=== PATIENT | male | born 1950 | race Caucasian/White ===

== ENCOUNTER 2017-05-30 01:44 | Emergency (ER) | payer OTHER ==
[~2017-05-30] VITALS: Ht 170.2 cm; Wt 95.5 kg
[~2017-05-30 01:44] MED LIST: ASPI-435 PO; CHOL100027 PO; CIPR-255 PO; METF500T PO
[2017-05-30 02:04] VITALS: TEMP 36.8; Ht 170.2 cm; Wt 95.5 kg
[2017-05-30] MEDS ORDERED: ONDANSETRON INJ 2 MG/ML 2 ML VIAL IV STA (02:20)
[2017-05-30] MEDS ORDERED: SODIUM CHLORIDE 0.9% 1000ML 1,000 ML IV STA (02:20)
[2017-05-30 02:32] LABS: BASO % 0.2 %; BASO ABS # 0.02 K/uL (0-0.2); COMPLETE YES; EOS % 0.2 %; HEMATOCRIT 46.9 % (42-52); IG% 0.3 %; LYMPH % 16.3 %; LYMPH ABS # 1.96 K/uL (1.2-3.4); MEAN CELL VOLUME 89.2 fL (80-100); MEAN CORPUSCULAR HEMOGLOBIN 30.8 pg (25-34); MEAN CORPUSCULAR HGB CONC 34.5 g/dl (32-36); MEAN PLATELET VOLUME 9.1 fL (7.4-10.4); MONO % 5.5 %; NEUT % 77.5 %; PLATELET COUNT 149 K/uL (130-400); RED BLOOD COUNT 5.26 M/uL (4.7-6.1); WHITE BLOOD COUNT 12.06 K/uL (4.8-10.8)
[2017-05-30 02:35] LABS: URINE APPEARANCE CLOUDY (CLEAR); URINE BILIRUBIN NEG (NEG); URINE COLOR YELLOW; URINE EPITHELIAL CELL AUTO 0-5 /lpf (0-5); URINE NITRITE NEG (NEG); URINE SPECIFIC GRAVITY 1.032 (1.000-1.030); UROBILINOGEN NEG (NEG); ZZUR CULT IF INDIC CLEAN CATCH NO
[2017-05-30 02:36] LABS: MANUAL MICROSCOPIC REQUIRED? NO; REVIEW REQ? NO
[2017-05-30 02:48] LABS: BUN/CREATININE RATIO 15.1 (10-20); CALCIUM 9.7 mg/dl (8.5-10.1); CREATININE 1.3 mg/dl (0.60-1.40); POTASSIUM 4.2 mmol/L (3.5-5.1)
[2017-05-30 02:51] LABS: ALB/GLOB RATIO 0.9 (0.9-2)
[2017-05-30] MEDS ORDERED: MoRPHine SULFATE 10 MG/ML CARP/VIAL IV STA (03:23)
[2017-05-30] MEDS ORDERED: TAMS0.4C38 PO (05:29)
[2017-05-30] MEDS ORDERED: ONDA4TAB10 SL (05:29)
[2017-05-30] MEDS ORDERED: OXYC-57 PO (05:29)
--- NOTE | 2017-05-30 05:30 | EMERGENCY ROOM VISIT NOTE ---
History First contact with patient: 02:06 Chief Complaint: VOMITING Stated Complaint: UPSET STOMACH Nursing Triage Summary: Patient reports abdominal pain and vomiting all day. Patient has hx kidney stones and states these symptoms are similar. Patient was at ER with friend all day today and unable to take his medicine. History of Present Illness The patient is a 67 year old male who presents to the Emergency Room with complaints of abdominal bloating, nausea and vomiting. The patient states that his symptoms began yesterday. He reports generalized abdominal bloating and a feeling of fullness. He has had nausea and 3 episodes of vomiting. He has a history of kidney stones and feels this may be similar, but is unsure. He did not have a bowel movement today, but states they were regular prior to today. He rates his discomfort a 7/10. He denies any back pain or pain radiating to the groin. He denies any urinary symptoms. Review of Systems A complete 10 point review of systems was reviewed with the patient with pertinent positives and negatives as per history of present illness. All else were negative. Past Medical/Surgical History Medical Problems: (1) Diabetes Family History FH: abdominal aortic aneurysm Social History Smoking Status: Never Smoker Drug Use: none Marital Status: Housing Status: lives with significant other Occupation Status: employed Current/Historical Medications Scheduled Aspirin (Aspirin 81), 81 MG PO DAILY Cholecalciferol (Vitamin D 1000 Unit), 1,000 INTER.UNIT PO DAILY Metformin Hcl (Glucophage), 500 MG PO QPM Metformin Hcl (Glucophage), 1,000 MG PO QAM Ondasetron Odt (Zofran Odt), 4 MG SL Q6H Tamsulosin Hcl (Flomax), 0.4 MG PO DAILY Scheduled PRN Oxycodone/Acetaminophen 5MG/325MG (Percocet 5MG/325MG), 1-2 TABS PO Q4H PRN for Pain Allergies Coded Allergies: No Known Allergies (Unverified , 05/30/17) Physical Exam Vital Signs Date Time Temp Pulse Resp B/P (MAP) Pulse Ox O2 Delivery O2 Flow Rate FiO2 05/30/17 05:34 70 18 133/71 96 Room Air 05/30/17 04:52 67 18 164/85 96 Room Air 05/30/17 03:32 66 20 155/81 97 Room Air 05/30/17 02:04 36.8 70 21 174/86 98 Room Air Pain Rating (0-10): 0 Physical Exam VITALS: Vitals are noted on the nurse's note and reviewed by myself. Vital signs stable. GENERAL: This is a 67-year-old male, in no acute distress, nondiaphoretic, well- developed well-nourished. HEART: Regular rate and rhythm without murmurs gallops or rubs. LUNGS: Clear to auscultation bilaterally without wheezes, rales or rhonchi. ABDOMEN: Positive bowel sounds x 4. Soft, nondistended. Mild generalized tenderness. MUSCULOSKELETAL: No CVA tenderness. NEURO: Patient was alert and oriented to person place and time. Medical Decision & Procedures ER Provider Diagnostic Interpretation: KUB: No renal or ureteral calculi identified. Normal bowel gas pattern. US RENAL: Right kidney shows no substantial abnormality. There is at least mild left hydronephrosis. The visualized proximal left ureter is mildly dilated to 4 mm in caliber. 4 mm stone in the lower pole of the left kidney. 2.3 cm septated mass in the upper pole of the left kidney, nonvascular. It may represent a complex cyst. Left urinary jet not seen. CT ABDOMEN & PELVIS: 3 mm stone at the left UVJ with postobstructive change. Additional nonobstructing stone in the left kidney. Left renal hypodensity. May represent a simple cyst. Diverticulosis. Remainder of noncontrast study shows no definite evidence for an additional acute inflammatory process. Radiologist: Gordy Javed MD Laboratory Results 05/30/17 02:10 Red Blood Count 5.26, Mean Corpuscular Volume 89.2, Mean Corpuscular Hemoglobin 30.8, Mean Corpuscular Hemoglobin Concent 34.5, Mean Platelet Volume 9.1, Neutrophils (%) (Auto) 77.5, Lymphocytes (%) (Auto) 16.3, Monocytes (%) (Auto) 5.5, Eosinophils (%) (Auto) 0.2, Basophils (%) (Auto) 0.2, Neutrophils # (Auto) 9.36, Lymphocytes # (Auto) 1.96, Monocytes # (Auto) 0.66, Eosinophils # (Auto) 0.02, Basophils # (Auto) 0.02 05/30/17 02:10 Test 05/30/17 02:10 05/30/17 02:20 White Blood Count 12.06 K/uL (4.8-10.8) Red Blood Count 5.26 M/uL (4.7-6.1) Hemoglobin 16.2 g/dL (14.0-18.0) Hematocrit 46.9 % (42-52) Mean Corpuscular Volume 89.2 fL (80-100) Mean Corpuscular Hemoglobin 30.8 pg (25-34) Mean Corpuscular Hemoglobin Concent 34.5 g/dl (32-36) Platelet Count 149 K/uL (130-400) Mean Platelet Volume 9.1 fL (7.4-10.4) Neutrophils (%) (Auto) 77.5 % Lymphocytes (%) (Auto) 16.3 % Monocytes (%) (Auto) 5.5 % Eosinophils (%) (Auto) 0.2 % Basophils (%) (Auto) 0.2 % Neutrophils # (Auto) 9.36 K/uL (1.4-6.5) Lymphocytes # (Auto) 1.96 K/uL (1.2-3.4) Monocytes # (Auto) 0.66 K/uL (0.11-0.59) Eosinophils # (Auto) 0.02 K/uL (0-0.5) Basophils # (Auto) 0.02 K/uL (0-0.2) RDW Standard Deviation 41.0 fL (36.4-46.3) RDW Coefficient of Variation 12.7 % (11.5-14.5) Immature Granulocyte % (Auto) 0.3 % Immature Granulocyte # (Auto) 0.04 K/uL (0.00-0.02) Urine Color YELLOW Urine Appearance CLOUDY (CLEAR) Urine pH 5.0 (4.5-7.5) Urine Specific [place] 1.032 (1.000-1.030) Urine Protein TRACE (NEG) Urine Glucose (UA) 3+ (NEG) Urine Ketones 1+ (NEG) Urine Occult Blood 2+ (NEG) Urine Nitrite NEG (NEG) Urine Bilirubin NEG (NEG) Urine Urobilinogen NEG (NEG) Urine Leukocyte Esterase NEG (NEG) Urine WBC (Auto) 0 /hpf (0-5) Urine RBC (Auto) 5-10 /hpf (0-4) Urine Hyaline Casts (Auto) 1-5 /lpf (0-5) Urine Epithelial Cells (Auto) 0-5 /lpf (0-5) Urine Bacteria (Auto) NEG (NEG) Anion Gap 9.0 mmol/L (3-11) Est Creatinine Clear Calc Drug Dose 59.1 ml/min Estimated GFR () 64.5 Estimated GFR (Non- 55.7 BUN/Creatinine Ratio 15.1 (10-20) Calcium Level 9.7 mg/dl (8.5-10.1) Total Bilirubin 0.6 mg/dl (0.2-1) Aspartate Amino Transf (AST/SGOT) 31 U/L (15-37) Alanine Aminotransferase (ALT/SGPT) 47 U/L (12-78) Alkaline Phosphatase 70 U/L (45-117) Total Protein 8.0 gm/dl (6.4-8.2) Albumin 3.8 gm/dl (3.4-5.0) Globulin 4.2 gm/dl (2.5-4.0) Albumin/Globulin Ratio 0.9 (0.9-2) Bedside Glucose 214 mg/dl (70-99) Medications Administered Medications (Trade) Dose Ordered Sig/Genna Route Start Time Stop Time Status Last Admin Dose Admin Sodium Chloride 1,000 ml @ 999 mls/hr Q1H1M STAT IV 05/30/17 02:20 05/30/17 03:20 DC 05/30/17 02:25 999 MLS/HR Ondansetron HCl (Zofran Inj) 4 mg NOW STAT IV 05/30/17 02:20 05/30/17 02:22 DC 05/30/17 02:25 4 MG Morphine Sulfate (MoRPHine SULFATE INJ) 6 mg NOW STAT IV 05/30/17 03:23 05/30/17 03:24 DC 05/30/17 03:28 6 MG ED Course The patient was evaluated as above. Labs were drawn and IV access was obtained. Patient was medicated with 1 L normal saline solution and 4 mg Zofran IV. He initially declined analgesics. Patient did not requested something for pain. He was given 6 mg morphine IV. Renal US was performed and read by statrad as above. Patient was reevaluated and findings were discussed. CT scan of the abdomen and pelvis was ordered. Patient was reevaluated and stated that he was feeling well. He would like to go home. Discharge instructions were reviewed with the patient. The patient verbalized understanding of my assessment and treatment plan and was discharged home in good condition. Medical Decision Differential diagnosis includes renal calculus, pyelonephritis, colitis, gastritis, among others. The patient is a 67-year-old male who presents today complaining of abdominal bloating and vomiting. Labs revealed a mild leukocytosis. No concerning anemia or electrolyte abnormalities. Urinalysis was not suggestive of infection. Glucose was elevated consistent with patient history of diabetes. KUB and ultrasound were initially ordered but were inconclusive. CT scan did show a 3 mm stone at the left UVJ. The patient was feeling much better after IV morphine and Zofran and would like to be discharged home. He will be given pain medication, Zofran and Flomax and given a urine strainer. He was instructed to follow-up with his primary care provider as needed or return here for worsening symptoms. Based on the patient's presentation and work up, I feel the patient is stable for outpatient treatment. The patient was educated to return to the emergency department for any worsening of their current condition or new/concerning symptoms. He will follow up with his PCP. Medication reconciliation: I attest that I have personally reviewed the patient 's current medication list. Blood Pressure Screening: Patient was found to have a slightly elevated blood pressure due to circumstances. I do not believe that the patient requires hypertension monitoring. [place] Drug Monitoring Program Search Results: patient reviewed within database, no issues identified Impression Primary Impression: Left ureteral calculus Departure Information Dispostion Home / Self-Care Condition GOOD Prescriptions Ondasetron Odt (ZOFRAN ODT) 4 Mg Tab 4 MG SL Q6H for Nausea, #15 TAB Prov: Kelly Acevedo PA-C 05/30/17 Oxycodone/Acetaminophen 5MG/325MG (PERCOCET 5MG/325MG) Tab 1-2 TABS PO Q4H Y for Pain, #20 TAB For Initial Treatment Prov: Kelly Acevedo PA-C 05/30/17 Tamsulosin Hcl (FLOMAX) 0.4 Mg Cap 0.4 MG PO DAILY for 7 Days, #7 CAP Prov: Kelly Acevedo PA-C 05/30/17 Referrals Larry Esparza M.D. (PCP) Patient Instructions [facility] Additional Instructions You have been treated in the Emergency Department today for a Kidney Stone ( Nephrolithiasis). You have received pain medicine in the emergency department which impairs your ability to operate a vehicle. It is illegal for you to drive after receiving these medicines. You have been prescribed Percocet to be used for pain control. This is a narcotic medication. You cannot drive or consume alcohol while on this medicine. This medicine should only be used for pain that cannot be controlled with [id number] pain medicines. You have been prescribed and Zofran to be used for any nausea or vomiting. Take as prescribed. You have been prescribed Flomax 0.4 mg to be taken ONCE daily. This medicine has been prescribed as it can help relax the smooth muscles of the urinary tract increasing transit time of the kidney stone. For pain control, you can use the following [id number] medicines (if >12 yo): - Regular strength (325mg/tab) Tylenol (acetaminophen) 2 tabs every 4-6 hours as needed. Do not exceed 12 tablets in a 24 hour period. Avoid taking more than 4 grams (4000 mg) of Tylenol per day. This includes any other sources of acetaminophen you may take on a regular basis. - Regular strength (200 mg/tab) Advil (ibuprofen) 1-2 tabs every 4-6 hours as needed. Do not exceed a dose of 3200 mg per day. You have been provided a strainer and specimen collection cup. You should strain your urine to collect any passed stones. Your stones can be placed into the specimen cup and taken to your Urologist for further evaluation. You have been provided the contact information for the on-call Urologist. You should contact the Urologist's office tomorrow to establish a follow-up appointment from today's Emergency Department visit. Return to the Emergency Department if your symptoms persist despite the treatment plan outlined above or if you develop the following symptoms: intractable pain, fever, chills, or large amounts of blood in your urine.
[2017-05-30 05:34] VITALS: BP 133/71; PULSE 70; O2SAT 96
--- NOTE | 2017-05-30 07:08 | DIAGNOSTIC IMAGING REPORT ---
ABD/PELVIS WITHOUT FOR STONE HISTORY: 67-year-old male presents with diffuse abdominal pain and vomiting. COMPARISON: K be radiograph of same day, CTA abdomen and pelvis 10/02/2015 TECHNIQUE: Multiple axial CT images of the abdomen and pelvis were obtained without contrast. FINDINGS: There is minimal bibasilar atelectasis. No gross pneumoperitoneum. Inferior cardiac chambers are within normal limits. There is diffuse fatty infiltration of the liver. The gallbladder, spleen, pancreas and adrenal glands are within normal limits. Cyst within the superior pole left kidney appears unchanged from comparison measuring 2.0 x 2.0 cm. 3 mm calculus within the left ureterovesicular junction is present causing mild associated hydroureteronephrosis with moderate degree of left-sided perinephric edema. There is an additional nonobstructing 3 mm calculus within the inferior pole left kidney as well as a nonobstructing 2 mm calculus. No definite right-sided renal calculi are identified. The prostate is mildly prominent in size. Urinary bladder is unremarkable. No bowel obstruction. Noninflamed colonic diverticula are present. The appendix appears normal. No adenopathy is identified. The soft tissues are unremarkable. 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 Multilevel severe facet arthrosis and DISH changes are also present. IMPRESSION: 1. 3 mm calculus of the left ureterovesicular junction causes mild associated hydroureteronephrosis. Additional nonobstructing left-sided renal calculi are present. 2. Colonic diverticulosis. 3. Hepatosteatosis. Electronically signed by: Kirill Brown 05/30/2017 7:07 AM Dictated Date/Time: 05/30/2017 7:01 AM
--- NOTE | 2017-05-30 07:27 | DIAGNOSTIC IMAGING REPORT ---
ULTRASOUND KIDNEYS AND BLADDER CLINICAL HISTORY: Bloating and nausea. COMPARISON STUDY: Abdominal CT dated 10/02/2015. TECHNIQUE: Real-time, grayscale, and color flow sonography of the kidneys and bladder is performed. Images are reviewed in the transverse and longitudinal planes. FINDINGS: Kidneys: The kidneys are normal in size and echotexture. The right kidney measures 11.3 x 5.0 x 5.8 cm and the left kidney measures 12.5 x 5.7 x 5.8 cm. There is mild left hydroureteronephrosis. No right-sided hydronephrosis is seen. A small nonobstructing calculus is suggested in the left lower pole. A 2.3 cm cyst is identified in the upper pole of left kidney. There is no sonographic evidence of contour deforming renal mass lesion. No perinephric fluid is identified. Bladder: The bladder is decompressed and grossly unremarkable. Only a right ureteral jet was seen. Upper abdomen: Survey images of the upper abdomen show hepatomegaly and hepatic steatosis. IMPRESSION: 1. There is mild left-sided hydroureteronephrosis. A left renal jet was not identified, and these findings are highly concerning for an obstructing left ureteral calculus. The stone itself was not visualized. 2. There is no right-sided hydronephrosis. 3. An additional nonobstructing calculus is suggested in the left kidney. 4. The bladder was decompressed and grossly unremarkable. Electronically signed by: Arnold Barroso M.D. 05/30/2017 7:26 AM Dictated Date/Time: 05/30/2017 7:23 AM
--- NOTE | 2017-05-30 07:33 | DIAGNOSTIC IMAGING REPORT ---
KUB HISTORY: 67-year-old male presents with bloating and nausea. History of kidney stones. COMPARISON: CT abdomen and pelvis of same day. TECHNIQUE: Single KUB radiograph FINDINGS: 3 mm calculus is seen within the expected region of the left ureterovesicular junction. No additional urolithiasis definitively seen. Bowel gas pattern is nonobstructive. Multilevel degenerative changes are seen throughout the spine. Severe left and moderate to severe right femoral acetabular joint osteoarthritis is present. IMPRESSION: 1. 3 mm calculus seen within the expected region of the left ureterovesicular junction, better evaluated on CT study of same day. 2. 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 Electronically signed by: Kirill Brown 05/30/2017 7:31 AM Dictated Date/Time: 05/30/2017 7:28 AM
== END 2017-05-30 05:33 | disposition home or self-care (01) ==
LOC: C.EDB 01:44 → C.EDA 05:33
DX: N20.1 Calculus of ureter (principal); R11.10 Vomiting, unspecified; R14.0 Abdominal distension (gaseous); D72.829 Elevated white blood cell count, unspecified; E11.9 Type 2 diabetes mellitus without complications; Z79.82 Long term (current) use of aspirin; Z79.84 Long term (current) use of oral hypoglycemic drugs; Z79.899 Other long term (current) drug therapy

== ENCOUNTER → 2017-09-03 | Day surgery (SDC) | payer OTHER ==
[2017-08-27 08:07] VITALS: Ht 170.2 cm; Wt 97.7 kg
[~2017-09-03] VITALS: Ht 170.2 cm; Wt 97.7 kg
[~2017-09-03] MED LIST changes: +500ML BSS 0.3ML EPI 1:1000PF IRRIG ONE; +ACETAMINOPHEN 325 MG TAB PO PRN; +AMVISC PLUS 0.8ML SYRINGE INT OCU ONE; +ATROPINE SULFATE 0.1 MG/ML 5ML SYR IV PRN; +BSS FLUSH ONE; -CIPR-255 PO; +EpHEDrine SULFATE INJ 50 MG/ML AMP IV PRN; +EpINEphrine INJ 1MG/ML AMP 1 MG/ML AMP ONE; +LACTATED RINGER'S 1000ML 500 ML IV SCH; +LIDOCAINE 3.5% OPH GEL PER APPLICATION CHARGE ONE; +LIDOCAINE HCL 1% MPF 2 ML VIAL ONE; +MIDAZOLAM HCL 1 MG/ML 2ML VIAL ONE; +OCUCOAT 1 ML SOLN IO ONE; +ONDANSETRON INJ 2 MG/ML 2 ML VIAL IV PRN; +POVIDONE-IODINE OP SOLN 30 ML BTL ONE; +PROPARACAINE 0.5% OP SOLN PER DROP CHARGE OPR SCH; +TOBRAMYCIN/DEXAMETHASONE OPH OINT PER APPLN CHARGE ONE
[2017-09-03] MEDS: PHENYLEPHRINE HCL 2.5% OP SOLN PER DROP CHARGE OPR SCH ×2 (09:39→09:44)
[2017-09-03] MEDS: TROPICAMIDE 1% OP SOLN PER DROP CHARGE OPR SCH ×2 (09:40→09:45)
[2017-09-03] MEDS: CYCLOPENTOLATE HCL 1% OP SOLN PER DROP CHARGE OPR SCH ×2 (09:41→09:46)
[2017-09-03] MEDS: KETOROLAC 0.5% OP SOLN PER DROP CHARGE OPR SCH ×2 (09:42→09:47)
[2017-09-03] MEDS: GATIFLOXACIN OP SOLN PER DROP CHARGE OPR SCH ×2 (09:43→09:53)
--- NOTE | 2017-09-03 10:12 | History & Physical Bridge - SC ---
H&P Re-Evaluation Bridge Note: I have examined the patient, reviewed the History & Physical and in the interval since the performance of the History & Physical I have noted the following changes of clinical significance: No changes noted
--- NOTE | 2017-09-03 10:41 | Discharge Instructions-SurgCtr ---
Discharge Instructions Date of Service Sep 03, 2017. Visit Reason for Visit: Cataract Right Eye Discharge Discharge Diagnosis / Problem: cataract Discharge Goals Goal(s): Improve function Medications Stopped Medications Name(s): stopped metformin Saturday Activity Recommendations Activity Limitations: per Instructions/Follow-up section Anesthesia . Post Anesthesia Instructions: If you have had General Anesthesia or IV Sedation: * Do not drive today. * Resume driving when surgeon permits. * Do not make important decisions or sign legal documents today. * Call surgeon for: 1. Temperature elevations greater than 101 degrees F. 2. Uncontrollable pain. 3. Excessive bleeding. 4. Persistent nausea and vomiting. 5. Medication intolerance (nausea, vomiting or rash). * For nausea and vomiting use only clear liquids such as: tea, soda, bouillon until nausea subsides, then gradually increase diet as tolerated. * If you have any concerns or questions, call your surgeon's office. If physician is unavailable and it is an emergency, call 911 or go to the nearest emergency room. . Diet Recommendations Home Diet: resume previous diet Procedures Procedures Performed: Right Cataract Phacoemulsification With Intraocular Lens Implant Pending Studies Studies pending at discharge: no Medical Emergencies . Who to Call and When: Medical Emergencies: If at any time you feel your situation is an emergency, please call 911 immediately. . Non-Emergent Contact Non-Emergency issues call your: Library Services Coordinator . . "Provider Documentation" section prepared by Arvind Rehman. .
--- NOTE | 2017-09-03 10:41 | [facility] Operative Report ---
Operative Report Date of Service Sep 03, 2017. Operative Report 1. PREOPERATIVE DIAGNOSIS: Cataract of the right eye. 2. POSTOPERATIVE DIAGNOSIS: Same. 3. PROCEDURE: Phacoemulsification with intraocular lens implantation of the right eye. SURGEON: Dr. Arvind Rehman. ANESTHESIA: Topical Lidocaine gel, 1% Non- Preserved intracameral Lidocaine, and monitored intravenous sedation. INDICATIONS FOR THE PROCEDURE: The patient is a 67 - year-old male with a history of cataract of the right eye causing significant visual impairment. The details of the proposed procedure were explained to the patient who asked appropriate questions and following discussion of all risks, benefits and alternatives agreed to have the procedure done. 4. OPERATION AND FINDINGS: DESCRIPTION OF PROCEDURE: After informed consent was obtained, the patient was brought to the Operating Room at the [facility]. The patient was placed in a supine position and then the right eye was prepped and draped in the usual sterile fashion for intraocular surgery. A drop of topical Lidocaine gel was placed in the operative eye. A wire lid speculum was then placed in the fornices. A corneal paracentesis was then created temporally. The Non-Preserved Lidocaine was then instilled into the anterior chamber. The anterior chamber was then pressurized with viscoelastic. A 2.0 mm clear corneal incision was then created temporally. A cystotome was inserted into the anterior chamber and used to create a tear in the anterior lens capsule. This capsular tear was then used to create a small flap and the flap was dragged in a counterclockwise direction in order to create a continuous curvilinear capsulorrhexis. Hydrodissection was accomplished with balanced salt solution. Phacoemulsification of the lens nucleus was then performed in a standard [id number] technique. The phaco time was 21 seconds with an average power of 9 %. The remaining cortical material was removed using irrigation aspiration. The capsular bag was then filled with viscoelastic. A [employer]ch [employer] Lomb MI60L +20.5 diopters lens was then loaded into the injector and injected into the capsular bag. The remaining viscoelastic was removed with the irrigation aspiration handpiece. The wound was hydrated and then checked and found to be watertight. The intraocular pressure was checked and found to be adequate. The wire lid speculum was removed and the patient's face was cleaned and dried. TobraDex ointment was placed in the inferior fornix. The patient was discharged to the Recovery Room having tolerated the procedure well. There were no complications. The patient will be seen tomorrow in the office for follow-up. I attest to the content of the Intraoperative Record and any orders documented therein. Any exceptions are noted below.
[2017-09-03 10:58] VITALS: TEMP 36.5
--- NOTE | 2017-09-03 11:06 | Anesthesia Progress Nt - [facility] ---
Anesthesia Post Op Note Date & Time Sep 03, 2017 at 11:06 Vital Signs Pain Intensity: 0 Vital Signs Past 12 Hours Date Time Temp Pulse Resp B/P (MAP) Pulse Ox O2 Delivery O2 Flow Rate FiO2 09/03/17 10:58 36.5 69 20 120/80 (93) 95 Room Air 09/03/17 09:31 36.7 72 16 143/85 (104) 96 Room Air Notes Mental Status: alert / awake / arousable, participated in evaluation Pt Amnestic to Procedure: Yes Nausea / Vomiting: adequately controlled Pain: adequately controlled Airway Patency, RR, SpO2: stable & adequate BP & HR: stable & adequate Hydration State: stable & adequate Anesthetic Complications: no major complications apparent Doing well. VSS. Ready for d/c
[2017-09-03 11:09] VITALS: BP 118/79; PULSE 62; O2SAT 97
== END | disposition home or self-care (01) ==
LOC: X.SURG 09:10
PROVIDERS: ATTEND Ophthalmology
DX: H26.9 Unspecified cataract (principal); E11.9 Type 2 diabetes mellitus without complications; J34.2 Deviated nasal septum; E78.5 Hyperlipidemia, unspecified; E66.9 Obesity, unspecified; Z79.82 Long term (current) use of aspirin; Z86.010 Personal history of colon polyps; Z80.3 Family history of malignant neoplasm of breast

== ENCOUNTER → 2017-09-24 | Day surgery (SDC) | payer OTHER ==
[2017-09-11 10:02] VITALS: Ht 170.2 cm; Wt 97.7 kg
[~2017-09-24] VITALS: Ht 170.2 cm; Wt 97.7 kg
[~2017-09-24] MED LIST changes: +FENTANYL CITRATE INJ 50 MCG/1 ML 2 ML VIAL IV PRN; +PROPARACAINE 0.5% OP SOLN PER DROP CHARGE OPL SCH; -PROPARACAINE 0.5% OP SOLN PER DROP CHARGE OPR SCH
[2017-09-24] MEDS: PHENYLEPHRINE HCL 2.5% OP SOLN PER DROP CHARGE OPL SCH ×2 (06:33→06:38)
[2017-09-24] MEDS: TROPICAMIDE 1% OP SOLN PER DROP CHARGE OPL SCH ×2 (06:34→06:39)
[2017-09-24] MEDS: CYCLOPENTOLATE HCL 1% OP SOLN PER DROP CHARGE OPL SCH ×2 (06:35→06:40)
[2017-09-24] MEDS: KETOROLAC 0.5% OP SOLN PER DROP CHARGE OPL SCH ×2 (06:36→06:41)
[2017-09-24] MEDS: GATIFLOXACIN OP SOLN PER DROP CHARGE OPL SCH ×2 (06:37→06:47)
--- NOTE | 2017-09-24 06:57 | History & Physical Bridge - [place] ---
H&P Re-Evaluation Bridge Note: I have examined the patient, reviewed the History & Physical and in the interval since the performance of the History & Physical I have noted the following changes of clinical significance: Diagnosis: Left Cataract Procedure: Left Cataract Removal with Lens Implant No changes noted
--- NOTE | 2017-09-24 07:42 | Discharge Instructions-SurgCtr ---
Discharge Instructions Date of Service Sep 24, 2017. Visit Reason for Visit: Cataract Left Eye Discharge Discharge Diagnosis / Problem: cataract Discharge Goals Goal(s): Improve function Medications Stopped Medications Name(s): Metformin stopped Saturday Activity Recommendations Activity Limitations: per Instructions/Follow-up section Anesthesia . Post Anesthesia Instructions: If you have had General Anesthesia or IV Sedation: * Do not drive today. * Resume driving when surgeon permits. * Do not make important decisions or sign legal documents today. * Call surgeon for: 1. Temperature elevations greater than 101 degrees F. 2. Uncontrollable pain. 3. Excessive bleeding. 4. Persistent nausea and vomiting. 5. Medication intolerance (nausea, vomiting or rash). * For nausea and vomiting use only clear liquids such as: tea, soda, bouillon until nausea subsides, then gradually increase diet as tolerated. * If you have any concerns or questions, call your surgeon's office. If physician is unavailable and it is an emergency, call 911 or go to the nearest emergency room. . Diet Recommendations Home Diet: resume previous diet Procedures Procedures Performed: Left Cataract Phacoemulsification with Intraocular Lens Implant Pending Studies Studies pending at discharge: no Medical Emergencies . Who to Call and When: Medical Emergencies: If at any time you feel your situation is an emergency, please call 911 immediately. . Non-Emergent Contact Non-Emergency issues call your: Theater Set Production Designer . . "Provider Documentation" section prepared by Arvind Rehman. .
--- NOTE | 2017-09-24 07:43 | [facility] Operative Report ---
Operative Report Date of Service Sep 24, 2017. Operative Report 1. PREOPERATIVE DIAGNOSIS: Cataract of the left eye. 2. POSTOPERATIVE DIAGNOSIS: Same. 3. PROCEDURE: Phacoemulsification with intraocular lens implantation of the left eye. SURGEON: Dr. Arvind Rehman. ANESTHESIA: Topical Lidocaine gel, 1% Non- Preserved intracameral Lidocaine, and monitored intravenous sedation. INDICATIONS FOR THE PROCEDURE: The patient is a 67 - year-old male with a history of cataract of the left eye causing significant visual impairment. The details of the proposed procedure were explained to the patient who asked appropriate questions and following discussion of all risks, benefits and alternatives agreed to have the procedure done. 4. OPERATION AND FINDINGS: DESCRIPTION OF PROCEDURE: After informed consent was obtained, the patient was brought to the Operating Room at the [facility]. The patient was placed in a supine position and then the left eye was prepped and draped in the usual sterile fashion for intraocular surgery. A drop of topical Lidocaine gel was placed in the operative eye. A wire lid speculum was then placed in the fornices. A corneal paracentesis was then created temporally. The Non-Preserved Lidocaine was then instilled into the anterior chamber. The anterior chamber was then pressurized with viscoelastic. A 2.0 mm clear corneal incision was then created temporally. A cystotome was inserted into the anterior chamber and used to create a tear in the anterior lens capsule. This capsular tear was then used to create a small flap and the flap was dragged in a counterclockwise direction in order to create a continuous curvilinear capsulorrhexis. Hydrodissection was accomplished with balanced salt solution. Phacoemulsification of the lens nucleus was then performed in a standard [id number] technique. The phaco time was 24 seconds with an average power of 10 %. The remaining cortical material was removed using irrigation aspiration. The capsular bag was then filled with viscoelastic. A Bausch [employer] Lomb MI60L +20.0 diopters lens was then loaded into the injector and injected into the capsular bag. The remaining viscoelastic was removed with the irrigation aspiration handpiece. The wound was hydrated and then checked and found to be watertight. The intraocular pressure was checked and found to be adequate. The wire lid speculum was removed and the patient's face was cleaned and dried. TobraDex ointment was placed in the inferior fornix. The patient was discharged to the Recovery Room having tolerated the procedure well. There were no complications. The patient will be seen tomorrow in the office for follow-up. I attest to the content of the Intraoperative Record and any orders documented therein. Any exceptions are noted below.
[2017-09-24 07:45] VITALS: TEMP 36.2
--- NOTE | 2017-09-24 08:08 | Anesthesia Progress Nt - [facility] ---
Anesthesia Post Op Note Date & Time Sep 24, 2017 at 08:08 Vital Signs Pain Intensity: 0 Vital Signs Past 12 Hours Date Time Temp Pulse Resp B/P (MAP) Pulse Ox O2 Delivery O2 Flow Rate FiO2 09/24/17 07:45 36.2 66 16 115/74 (88) 95 Room Air 09/24/17 06:26 36.6 70 18 156/81 (106) 95 Room Air Notes Mental Status: alert / awake / arousable, participated in evaluation Pt Amnestic to Procedure: Yes Nausea / Vomiting: adequately controlled Pain: adequately controlled Airway Patency, RR, SpO2: stable & adequate BP & HR: stable & adequate Hydration State: stable & adequate Anesthetic Complications: no major complications apparent
[2017-09-24 08:13] VITALS: BP 110/73; PULSE 63; O2SAT 95
== END | disposition home or self-care (01) ==
LOC: X.SURG 06:11
PROVIDERS: ATTEND Ophthalmology
DX: H26.9 Unspecified cataract (principal); E11.9 Type 2 diabetes mellitus without complications; E78.5 Hyperlipidemia, unspecified; E66.9 Obesity, unspecified; Z68.30 Body mass index [BMI] 30.0-30.9, adult; Z79.899 Other long term (current) drug therapy

== ENCOUNTER 2019-02-27 06:58 | Inpatient (IN) ==
--- NOTE | 2019-01-26 10:31 | PAT Medication Instructions ---
Medication Instructions Date of Service January 26, 2019 Home Medications aspirin [Aspir-Low] 81 mg PO QAM metformin 500 mg PO BID DO NOT take the morning of surgery metformin 500 mg PO BID Take morning of surgery With a small sip of water, OTHERWISE NOTHING TO EAT OR DRINK AFTER MIDNIGHT: aspirin [Aspir-Low] 81 mg PO QAM Take evening before surgery metformin 500 mg PO BID Other Notes If you have any questions please call us at [phone] or [phone] or [phone] or [phone]
--- NOTE | 2019-01-26 11:16 | Anesthesiology Consultation ---
Date of Service January 26, 2019 Assessment & Plan (1) Encounter for pre-operative examination: Chart Review Chart Review: Acceptable Risk for Surgery and Patient seen in Pre Admission Testing Consults Requested none Note sent to PCP re: HgBA1C and BSG. Patient is ok to proceed with surgery, but will wait to see if PCP makes any changes to patients diabetes management before clearing chart. Note received from PCP regarding patients blood sugars. Note received stating, "Unfortunately his sugars have not been well controlled. He has been using Metformin ER 500 mg 2 tabs daily. I recently (1 week ago) started him on Jardiance 25mg daily. His blood sugars are much improved (recent sugars ranging between 123-184 various times of day). I feel the diabetes is well enough controlled to proceed with surgery. He will need short acting Insulin coverage in post operative period." Teaching & Discussion Pre-Anesthesia Teaching/Discussion Notes: Instructed NPO after midnight before surgery, except medications with 15 cc of water. Medication instructions provided according to the PAT guidelines. History Surgery Operation Date: 02/27/19 12:30 Proposed Procedures p Right Anterior Total Hip Arthroplasty - Efren Gregorio DO Height/Weight Height: 5 ft 7 in Weight: 94.2 kg Allergies Allergy/AdvReac Type Severity Reaction Status Date / Time No Known Allergies Allergy Verified 01/22/19 10:06 Medications Home Medications Medication Instructions Recorded Confirmed Last Taken aspirin [Aspir-Low] 81 mg PO QAM 01/22/19 01/22/19 Unknown metformin 500 mg PO BID 01/22/19 01/22/19 Unknown Past Medical History Medical History Degenerative disc disease Diabetes mellitus, type 2 Hyperactive pharyngeal gag reflex PER PT Hyperlipidemia BORDERLINE ELEVATED Kidney stones NO SURGERY REQUIRED Osteoarthritis Peripheral neuropathy Past Family History Family History Mother Family history of diabetes mellitus Past Surgical History Surgical History History of cataract surgery RT/LEFT History of colonoscopy History of herniorrhaphy RIGHT INGUINAL History of tonsillectomy History of tooth extraction Past Anesthesia History No Hx of Anesthesia Complications and No Family Hx of Anesthesia Complications History of PONV No Motion Sickness Screening History of Motion Sickness: No Social History Smoking Status: Never smoker Do You Dip or Chew Tobacco: No Hx Alcohol Use: No Hx Substance Use: No substance use type: does not use Exercise / Class Metabolic Activity Climbs 2 FOS 6-8 times per day. Denies CP or SOB. Review of Systems Patient denies chest pain, shortness of breath, dyspnea on exertion, reflux, cough, wheezing, palpitations. +Joint pain (back, neck, hip, generalized) Physical Exam Vital Signs BP: 130/81 P: 69 R: 14 T: 97.4 SPO2: 96% on RA ENMT Mouth: + dental restorations Thyromental Distance: < 3.5 Finger Breadths (2.5) Mallampati Class: I Neck normal visual inspection, trachea midline and + limited neck extension Respiratory normal respiratory effort Auscultation: lungs clear to auscultation bilaterally Cardiovascular Rate/Rhythm: regular rate and regular rhythm Heart Sounds: no murmur Vessels: no carotid bruit Neurologic moves all extremities Psychiatric Orientation: alert and oriented x 3 Testing Electrocardiogram Date: 01/26/19 Findings: + NSR @ (65) Chest X-Ray Date: 01/26/19 Findings: + NAD FINDINGS: Cardiomediastinal and hilar silhouettes are within normal limits. No pneumothorax, pleural effusion, focal airspace consolidation or overt pulmonary edema. Degenerative changes of the shoulders and spine. IMPRESSION: No acute process. Laboratory Results 01/26/19 11:51 01/26/19 11:51 Blood Type O Positive 01/26/19 11:51 Antibody Screen NEGATIVE 01/26/19 11:51 PT 10.2 Seconds (9.0-12.0) 01/26/19 11:51 INR 1.0 (0.9-1.1) 01/26/19 11:51 APTT 24.9 Seconds (21.0-31.0) 01/26/19 11:51 Hemoglobin A1c 8.5 % (4.5-5.6) H 01/26/19 11:51 PCP and Surgeon made aware of elevated A1C and BSG.
--- NOTE | 2019-01-26 13:05 | XRay Report ---
XR chest Pre-admission PA/Lat HISTORY: 68 years-old Male pat preoperative exam. No acute chest complaints COMPARISON: CT abdomen and pelvis 05/30/2017 TECHNIQUE: PA and lateral views of the chest FINDINGS: Cardiomediastinal and hilar silhouettes are within normal limits. No pneumothorax, pleural effusion, focal airspace consolidation or overt pulmonary edema. Degenerative changes of the shoulders and spin e. IMPRESSION: No acute process. The above report was generated using voice recognition software. It may contain grammatical, syntax o r spelling errors. Electronically signed by: Kirill Brown M.D. 01/26/2019 1:04 PM
[2019-01-26 13:19] LABS: Basophils # (auto) 0.01 K/uL (0-0.2); Basophils % (auto) 0.1 %; Eosinophils # (auto) 0.18 K/uL (0-0.5); Eosinophils % (auto) 2.5 %; Hematocrit (blood only) 46.3 % (42-52); Hemoglobin 15.8 g/dL (14.0-18.0); Immature Granulocytes # (auto) 0.01 K/uL (0.00-0.02); Immature Granulocytes % (auto) 0.1 %; Lymphocytes # (auto) 2.62 K/uL (1.2-3.4); Lymphocytes % (auto) 36.6 %; Mean Corpuscular Hgb Conc 34.1 g/dL (32-36); Mean Corpuscular Volume 90.3 fL (80-100); Mean Platelet Volume 9.8 fL (7.4-10.4); Monocytes # (auto) 0.65 K/uL (0.11-0.59); Monocytes % (auto) 9.1 %; Neutrophils # (auto) 3.69 K/uL (1.4-6.5); Neutrophils % (auto) 51.6 %; Platelet Count 169 K/uL (130-400); RDW Coefficient of Variation 12.7 % (11.5-14.5); RDW Standard Deviation 41.9 fL (36.4-46.3); Red Blood Count 5.13 M/uL (4.7-6.1); White Blood Count 7.16 K/uL (4.8-10.8)
[2019-01-26 13:27] LABS: BUN Creatinine Ratio 15.9 (10-20); Calcium 9.6 mg/dl (8.5-10.1); Creatinine Clr Calc Pharmacy 82.6 ml/min; Est GFR (African American) 98.6; Est GFR (Non-African American) 85.1; Potassium 4.3 mmol/L (3.5-5.1)
[2019-01-26 13:38] LABS: Estimated Average Glucose 197 mg/dl; Hemoglobin A1C 8.5 % (4.5-5.6)
[2019-01-26 13:43] LABS: Partial Thromboplastin Ratio 0.9; Partial Thromboplastin Time 24.9 Seconds (21.0-31.0); Prothrombin Time 10.2 Seconds (9.0-12.0)
--- NOTE | 2019-02-25 07:42 | History & Physical Report ---
Date of Service February 25, 2019 Assessment & Plan (1) Osteoarthritis of right hip: We will proceed with a right anterior total hip arthroplasty. Postoperatively he will be kept on aspirin for DVT prophylaxis. He is planning to go to [facility] rehab after discharge for a couple of days and then use [facility] when he goes home. Present on Admission?: Yes History of Present Illness Chief Complaint: Primary osteoarthritis of the right hip Primary Care Provider: Larry Hinojosa is a pleasant 68-year-old male who is been dealing with chronic increasing right hip and groin pain. X-rays and clinical examination have been diagnostic for primary osteoarthritis of the right hip. After failing conservative treatment, he has elected to proceed with a right total hip arthroplasty. Allergies Allergy/AdvReac Type Severity Reaction Status Date / Time No Known Allergies Allergy Verified 01/22/19 10:06 Home Medications Home Medications Medication Instructions Recorded Confirmed Type aspirin [Aspir-Low] 81 mg PO QAM 01/22/19 01/22/19 History metformin 500 mg PO BID 01/22/19 01/22/19 History Past Med/Surg History Medical History Degenerative disc disease Diabetes mellitus, type 2 Hyperactive pharyngeal gag reflex PER PT Hyperlipidemia BORDERLINE ELEVATED Kidney stones NO SURGERY REQUIRED Osteoarthritis Peripheral neuropathy Surgical History History of cataract surgery RT/LEFT History of colonoscopy History of herniorrhaphy RIGHT INGUINAL History of tonsillectomy History of tooth extraction Family History Mother Family history of diabetes mellitus Social History Preferred Language: Lithuanian Communication Ability: Effective Travel Accommodations Rater Required: No Beliefs That Will Affect Care: None Current Living Situation: Spouse Other Information That Helps Us Care for You: No Feels Safe at Home: Yes Safety Concerns: Feels Safe At This Time Smoking Status: Never smoker Hx Alcohol Use: No Hx Substance Use: No Review of Systems All systems reviewed & are unremarkable except as noted in HPI & below Physical Exam Constitutional: WD/WN, vitals as above Eyes: PERRL, conjunctivae normal, anicteric sclerae ENMT: external ear and nose normal, oropharynx normal Neck: trachea midline, no thyromegaly Respiratory: normal respiratory effort Cardiovascular: RRR, no murmur, no edema Gastrointestinal (Abdomen): normal bowel sounds, soft, nontender, no hepatosplenomegaly Musculoskeletal: Physical examination of the right hip reveals decreased range of motion with flexion, internal and external rotation. There is significant groin pain with forced internal rotation of the hip his leg lengths are essentially equal. Psychiatric: A+Ox3, euthymic affect Results & Data Diagnostic Findings Radiographs of the right hip and pelvis demonstrate advanced osteoarthritis with joint space narrowing osteophyte formation and feto-mr-oimm articulation.
[~2019-02-27 06:58] MED LIST changes: -500ML BSS 0.3ML EPI 1:1000PF IRRIG ONE; -ACETAMINOPHEN 325 MG TAB PO PRN; +ACETAMINOPHEN 500 MG TAB PO SCH; -AMVISC PLUS 0.8ML SYRINGE INT OCU ONE; -ASPI-435 PO; -ATROPINE SULFATE 0.1 MG/ML 5ML SYR IV PRN; -BSS FLUSH ONE; +CEFAZOLIN 2000MG 2,000 MG/15 ML SYR IV SCH; -CHOL100027 PO; -EpHEDrine SULFATE INJ 50 MG/ML AMP IV PRN; -EpINEphrine INJ 1MG/ML AMP 1 MG/ML AMP ONE; +FAMOTIDINE 20 MG TAB PO SCH; -FENTANYL CITRATE INJ 50 MCG/1 ML 2 ML VIAL IV PRN; +GABAPENTIN 300 MG PO SCH; -LACTATED RINGER'S 1000ML 500 ML IV SCH; -LIDOCAINE 3.5% OPH GEL PER APPLICATION CHARGE ONE; -LIDOCAINE HCL 1% MPF 2 ML VIAL ONE; +LR 500ML BOLUS, THEN 15ML/HR IV SCH; +LR 60ML/HR IV SCH; -METF500T PO; -MIDAZOLAM HCL 1 MG/ML 2ML VIAL ONE; -OCUCOAT 1 ML SOLN IO ONE; -ONDANSETRON INJ 2 MG/ML 2 ML VIAL IV PRN; -POVIDONE-IODINE OP SOLN 30 ML BTL ONE; -PROPARACAINE 0.5% OP SOLN PER DROP CHARGE OPL SCH; +ROPIVACAINE 0.5% HCL/PF 150 MG, BUPIVACAINE 0.5% MPF 30 ML, EPINEPHrine 30MG/30ML (OR U... INFIL SCH; -TOBRAMYCIN/DEXAMETHASONE OPH OINT PER APPLN CHARGE ONE; +TRANEXAMIC ACID 1,000 MG **IV Intra-op IV SCH; +TRANEXAMIC ACID 1,000 MG **IV Pre-op IV SCH
[2019-02-27] MEDS ORDERED: BUPIVACAINE 0.5 % 5 MG/1 ML PF 10ML VIAL ONE (07:06)
[2019-02-27] MEDS ORDERED: fentaNYL citrate 100 MCG/2 ML VIAL ONE ×2 (07:25→09:35)
[2019-02-27] MEDS ORDERED: MIDAZOLAM HCL 1 MG/ML 2ML VIAL ONE ×3 (07:25→09:35)
[2019-02-27] MEDS ORDERED: PROPOFOL IV EMULSION 10 MG/ML 20 ML VIAL IV ONE (07:26)
--- NOTE | 2019-02-27 09:05 | History & Physical Bridge Note ---
Date of Service February 27, 2019 History & Physical Bridge Note I have examined the patient, reviewed the History & Physical and in the interval since the performance of the History & Physical I have noted the following changes of clinical significance: no changes noted
[2019-02-27] MEDS ORDERED: POVIDONE-IODINE OP SOLN 30 ML BTL ONE (09:35)
[2019-02-27] MEDS ORDERED: ORTHO JOINT ANESTHETIC ONE (09:35)
[2019-02-27] MEDS ORDERED: ePHEDrine sulfate 50 MG/ML AMP ONE (10:22)
--- NOTE | 2019-02-27 11:34 | Operative Report ---
Post Operative Report Pre & Post Diagnosis Operation Date: 02/27/19 09:20 Pre-Op Diagnosis: Right Hip Osteoarthritis Post-Op Diagnosis: Right Hip Osteoarthritis Procedure Operation Date: 02/27/19 09:20 Actual Procedures p Right Anterior Total Hip Arthroplasty(Right) - Efren Gregorio DO Surgeon Efren Gregorio DO Rn Lpn Lvn Efren Hensley PAC Estimated Blood Loss 350 Findings Consistent with Post-Op Diagnosis Specimens Right femoral head Complications none Disposition Disposition: Recovery Room Indications Ashish is a pleasant 69-year-old male who presented my office with complaints of chronic increasing right hip and groin pain. X-rays and clinical examination were diagnostic for primary osteoarthritis of the right hip. After failing conservative treatment, he elected to proceed with a right total hip arthroplasty. Description of Procedure Implants used Biomet Taperloc total hip arthroplasty system with a size 11 standard offset Taperloc stem, a 52 mm G7 cup with a 25mm screw, an E1 polyethylene liner, a 36 mm ceramic head with a -3 neck. Patient arrived at the hospital for the above procedure. They were seen in the preoperative holding area and the operative extremity was identified and signed. They were given a spinal anesthetic. They were given a preoperative antibiotic and TXA. They were taken back To the operating room and laid on the table in the supine position. The leg was brought out through a Puristst leg positioner. The hip was then prepped and draped in sterile fashion. A timeout was done and the patient in upper extremities properly identified. An anterior approach was used. Dissection was taken down through the fascia and the tensor muscle belly was retracted laterally and the rectus was retracted medially. The circumflex vessels were identified and ligated. The capsule was then incised and tagged for later repair. The femoral neck was then cut and the femoral head was removed. The acetabulum was exposed. Time was spent doing a complete circumferential labral release. Sequential reaming of the acetabulum up to a size 51 reamer was done. Final reamings were done under fluoroscopy to ensure appropriate version. A Biomet 52 mm G7 cup was then impacted into place. A single 25 mm screw was placed. The E1 polyethylene liner was then snapped into place. Surrounding soft tissues were then injected with 100 cc of an orthopedic pain control cocktail. The proximal femur was then exposed. Sequential broaching up to a size 11 broach was done. Off that broach a size 36 head with a -3 neck was trialed. The hip was reduced and fluoroscopic images showed anatomic alignment of the implants in acceptable length. The broach was removed. The final size 11 standard offset Taperloc stem was then impacted into place. A ceramic 36 mm head with a -3 neck was then impacted into place in the hip was reduced. Final fluoroscopic images showed anatomic reduction of the hip. The capsule was then closed with #1 Vicryl suture. A dilute betadyne lavage was then done for 3 minutes. The joint was then irrigated with normal saline solution. The fascia was closed with #1 PDS suture. Skin was closed with 2-0 Vicryl, jess, and a Sandy VAC dressing. The patient was then transferred to a hospital bed and taken to the post anesthesia care unit in stable condition. They tolerated the procedure well. I attest to the content of the Intraoperative Record and any orders documented therein. Any exceptions are noted below.
--- NOTE | 2019-02-27 12:12 | XRay Report ---
AP PELVIS, CROSSTABLE LATERAL RIGHT HIP History: Right total hip arthroplasty. Degenerative arthritis. Postop. FINDINGS: The patient is status post a right total hip arthroplasty. The hardware is intact. No fract ure or dislocation. Skin jess are in place. IMPRESSION: Right total hip arthroplasty. No evidence for hardware complication Electronically signed by: Ulises Tran M.D. 02/27/2019 12:10 PM
--- NOTE | 2019-02-27 12:19 | Fluoroscopy Report ---
FL hip RT 1V CLINICAL HISTORY: RT ANTERIOR TOTAL HIP COMPARISON STUDY: Pelvis and right hip radiographs December 01, 2018 FLUOROSCOPY TIME: 24 seconds. FLUOROSCOPIC IMAGES: 2 FINDINGS: These images demonstrate expected findings during a total right hip arthroplasty. The hardw are is intact. There is an acetabular screw. There are no unexpected radiopaque foreign bodies. No fr actures are identified. IMPRESSION: Expected findings during total right hip arthroplasty. Electronically signed by: Domenico Lu M.D. 02/27/2019 12:18 PM
--- NOTE | 2019-02-27 12:33 | Anesthesiology Progress Note ---
Date of Service February 27, 2019 Anesthesia Post Procedure Vital Signs Vital Signs: Temp Pulse Pulse Resp BP Pulse Ox 02/27/19 12:20 68 12 120/70 97 02/27/19 12:10 66 15 114/71 95 02/27/19 12:00 73 12 124/69 100 02/27/19 11:50 36.6 C 70 17 124/64 98 02/27/19 07:30 36.9 C 69 18 127/87 95 Notes Mental Status: alert / awake / arousable and participated in evaluation Nausea / Vomiting: adequately controlled Pain: adequately controlled Airway Patency, RR, SpO2: stable & adequate BP & HR: stable & adequate Hydration State: stable & adequate Neuraxial Anesthesia: was administered and sensory block is resolving Anesthetic Complications: no major complications apparent
[2019-02-27] MEDS ORDERED: ePHEDrine sulfate 50 MG/ML AMP IV PRN (12:35)
[2019-02-27] MEDS ORDERED: ATROPINE SULFATE 0.1 MG/ML 10ML SYR IV PRN (12:35)
[2019-02-27] MEDS ORDERED: NALOXONE HCL 0.4 MG/1 ML VIAL/CARP IV PRN (13:36)
[2019-02-27] MEDS ORDERED: METOCLOPRAMIDE HCL INJ 5 MG/ML 2 ML VIAL IV PRN (13:36)
[2019-02-27] MEDS ORDERED: ONDANSETRON INJ 2 MG/ML 2 ML VIAL IV PRN (13:36)
[2019-02-27] MEDS ORDERED: HYDROmorphone INJ 0.5 MG/0.5 ML SYR IV PRN (13:36)
[2019-02-27] MEDS ORDERED: MAGNESIUM HYDROXIDE SUSP 30 ML UDC PO PRN (13:36)
[2019-02-27] MEDS ORDERED: BISACODYL 10 MG SUPP PR PRN (13:36)
[2019-02-27] MEDS ORDERED: PHARMACY GLYCEMIC MGMT CONSULT SCH (13:42)
[2019-02-27] MEDS ORDERED: DEXTROSE 50% 50 ML SYRINGE IV PRN (14:15)
[2019-02-27] MEDS ORDERED: GLUCOSE 40% GEL 15 GM TUBE PO PRN (14:15)
[2019-02-27] MEDS ORDERED: GLUCOSE 10 TABS/TUBE PO PRN (14:15)
[2019-02-27] MEDS ORDERED: GLUCAGON FOR INJ 1 MG VIAL IM PRN (14:15)
[2019-02-27] MEDS ORDERED: CARBOHYDRATES FOR HYPOGLYCEMIA PO PRN (14:15)
--- NOTE | 2019-02-27 14:18 | Pharmacy Report ---
Glycemic Control Consultation - Date of Service February 27, 2019 - Scope Scope: Glycemic Pharmacist consulted by Dr Gregorio on 02/27/19 for glycemic control and to write orders per [facility] inpatient glycemic control protocol - Objective Weight: 91 kg Accuchecks BSG (last 24hrs): 02/27/19 02/27/19 07:39 12:19 POC Glucose 139 H 122 H HbA1c: Hemoglobin A1c 8.5 % (4.5-5.6) H 01/26/19 11:51 - Recent Pertinent Medications Outpatient Anti-diabetic Regimen: * Metformin 500mg BID, Jardiance 10mg daily * A1c = 8.5 % 01/26/19 Risk Factors for Insulin Resistance: * IVF: NSS @ 100ml/hr * Recent Surgery: POD #0 right total hip arthroplasty * Diet: T2DM - Assessment & Plan Assessment & Plan: ASSESSMENT: * 69 yo male, type II diabetic who underwent right total hip arthroplasty today * Pt did not receive steroids pre-operatively * Pt maintained on oral antidiabetic agents as an outpatient. Latest A1c 8.5% is above goal target range based on age and comorbidities * Will initiate weight based insulin dosing for insulin brittany patient and titrate based on BSG trends. Goal is to maintain BSGs below 200 mg/dl to prevent post-op infectious complications. PLAN FOR INPATIENT GLYCEMIC CONTROL: * Will hold oral agents for admission and utilize SQ basal bolus insulin regimen which is the recommended regimen for inpatient glycemic control. * Basal insulin * Lantus 18 units (0.2 units/kg) SQ x1 at 1700 this evening * Further dosing to be determined based on AM fasting blood sugar * Bolus insulin * NovoLog per scale ACHS or Q6hrs while NPO * Goal Range: Low 110 mg/dL - High 140 mg/dL * Correction Factor: 25 mg/dL/unit * Nutritional / Prandial insulin per carb ratio of 1 unit per 9 grams CHO consumed * Please note that the plan above was derived based on current level of insulin resistance and hospital stress. These recommendations are appropriate for inpatient admission only. Plan of care upon discharge will need to be reassessed to avoid potential outpatient hypo/hyperglycemia. Thank you.
[2019-02-27] MEDS: KETOROLAC TROMETHAMINE 15 MG/ML VIAL IV SCH ×2 (14:36→20:49)
[2019-02-27] MEDS: SODIUM CHLORIDE 0.9% 1000ML 1,000 ML IV SCH ×2 (14:38→23:55)
[2019-02-27] MEDS: ACETAMINOPHEN 500 MG TAB PO SCH ×2 (16:46→22:40)
[2019-02-27] MEDS ORDERED: INSULIN GLARGINE SOLOSTAR 100 UNITS/ML 3 ML PEN SC SCH (17:00)
[2019-02-27] MEDS: INSULIN ASPART 100 UNITS/ML 3 ML PEN SC SCH ×2 (18:34→20:57)
[2019-02-27] MEDS: OXYCODONE HCL IR 5 MG TAB (IMMEDIATE RELEASE) PO PRN (18:40)
[2019-02-27] MEDS: CEFAZOLIN 2000MG 2,000 MG/15 ML SYR IV SCH (18:42)
[2019-02-27] MEDS: DOCUSATE SODIUM 100 MG CAP PO SCH (20:50)
[2019-02-27] MEDS: SENNA 8.6 MG TAB PO SCH (20:50)
[2019-02-27] MEDS: ASPIRIN 81 MG ECTAB PO SCH (20:50)
[2019-02-28] MEDS: CEFAZOLIN 2000MG 2,000 MG/15 ML SYR IV SCH (01:53)
[2019-02-28] MEDS: KETOROLAC TROMETHAMINE 15 MG/ML VIAL IV SCH ×4 (01:54→19:42)
[2019-02-28] MEDS: OXYCODONE HCL IR 5 MG TAB (IMMEDIATE RELEASE) PO PRN ×5 (03:09→19:04)
[2019-02-28] MEDS: ACETAMINOPHEN 500 MG TAB PO SCH ×3 (05:49→21:18)
[2019-02-28 05:53] LABS: Basophils # (auto) 0.01 K/uL (0-0.2); Basophils % (auto) 0.1 %; Eosinophils # (auto) 0.05 K/uL (0-0.5); Eosinophils % (auto) 0.4 %; Hematocrit (blood only) 35.2 % (42-52); Immature Granulocytes # (auto) 0.03 K/uL (0.00-0.02); Immature Granulocytes % (auto) 0.3 %; Lymphocytes # (auto) 1.99 K/uL (1.2-3.4); Lymphocytes % (auto) 17.9 %; Mean Corpuscular Hgb Conc 34.1 g/dL (32-36); Mean Corpuscular Volume 91.2 fL (80-100); Mean Platelet Volume 9.1 fL (7.4-10.4); Monocytes # (auto) 1.07 K/uL (0.11-0.59); Monocytes % (auto) 9.6 %; Neutrophils # (auto) 7.99 K/uL (1.4-6.5); Neutrophils % (auto) 71.7 %; Platelet Count 128 K/uL (130-400); RDW Coefficient of Variation 13.1 % (11.5-14.5); RDW Standard Deviation 43.5 fL (36.4-46.3); Red Blood Count 3.86 M/uL (4.7-6.1); White Blood Count 11.14 K/uL (4.8-10.8)
[2019-02-28 06:12] LABS: BUN Creatinine Ratio 18.4 (10-20); Creatinine Clr Calc Pharmacy 92.3 ml/min; Est GFR (African American) 104.7; Est GFR (Non-African American) 90.3; Potassium 3.9 mmol/L (3.5-5.1)
[2019-02-28] MEDS: MULTIVITAMIN TAB PO SCH (08:40)
[2019-02-28] MEDS: DOCUSATE SODIUM 100 MG CAP PO SCH ×2 (08:40→21:18)
[2019-02-28] MEDS: ASPIRIN 81 MG ECTAB PO SCH ×2 (08:40→21:18)
[2019-02-28] MEDS: INSULIN ASPART 100 UNITS/ML 3 ML PEN SC SCH ×4 (08:43→21:17)
--- NOTE | 2019-02-28 08:49 | Orthopedic Progress Note ---
Date of Service February 28, 2019 Assessment & Plan (1) Osteoarthritis of right hip: Overall he is doing fairly well. We will continue the aspirin for DVT prophylaxis and oxycodone for pain control. He will be seen by physical therapy today for ambulation. We plan to discharge him to home tomorrow. Present on Admission?: Yes Subjective Ashish was seen and examined at bedside this morning. Overall is doing fairly well. He is having a lot of pain in his right hip. He is been up and ambulating around the room. He has no other complaints. Physical Exam Vital Signs (Past 24 Hours): Last Vital Signs Temp 36.4 C L 02/28/19 07:21 Pulse 64 02/28/19 07:21 Resp 16 02/28/19 07:21 BP 110/69 02/28/19 07:21 Pulse Ox 97 02/28/19 07:21 Musculoskeletal: On physical examination of the right hip, the Sandy VAC dressing is to suction. His leg lengths are equal. He is neurovascular intact. Results & Data Laboratory Results H & H 01/26/19 02/28/19 Range/Units 11:51 05:22 Hgb 15.8 12.0 L (14.0-18.0) g/dL Hct 46.3 35.2 L (42-52) % Coagulation 01/26/19 Range/Units 11:51 INR 1.0 (0.9-1.1) Diagnostic Findings Postoperative x-rays of the right hip show the prosthesis to be in anatomic alignment without any evidence of fracture dislocation or loosening
[2019-02-28] MEDS ORDERED: INSULIN GLARGINE SOLOSTAR 100 UNITS/ML 3 ML PEN SC SCH (09:00)
--- NOTE | 2019-02-28 09:49 | Anesthesiology Progress Note ---
Date of Service February 28, 2019 Anesthesia Post Procedure Vital Signs Vital Signs: Temp Pulse Pulse Pulse Resp BP Pulse Ox 02/28/19 09:31 74 103/64 02/28/19 07:21 36.4 C L 64 16 110/69 97 02/28/19 03:10 36.5 C 63 16 119/71 95 02/28/19 00:00 36.5 C 67 14 117/71 95 02/27/19 19:58 36.7 C 72 20 120/68 95 02/27/19 16:00 36.8 C 70 20 121/74 97 02/27/19 15:06 36.5 C 77 20 117/71 97 02/27/19 14:35 68 16 126/77 97 02/27/19 14:06 68 16 130/77 97 02/27/19 13:15 36.5 C 64 16 125/74 100 02/27/19 12:50 64 14 101/65 95 02/27/19 12:40 65 14 112/63 96 02/27/19 12:30 36.3 C L 66 19 117/66 97 02/27/19 12:20 68 12 120/70 97 02/27/19 12:10 66 15 114/71 95 02/27/19 12:00 73 12 124/69 100 02/27/19 11:50 36.6 C 70 17 124/64 98 Pain Intensity Right Hip: Pain Intensity: 7 Notes Mental Status: alert / awake / arousable and participated in evaluation Patient Amnestic to Procedure: Yes Nausea / Vomiting: adequately controlled Pain: adequately controlled Airway Patency, RR, SpO2: stable & adequate BP & HR: stable & adequate Hydration State: stable & adequate Neuraxial Anesthesia: was administered and sensory block resolved Anesthetic Complications: no major complications apparent and Pt Satisfied with anesthetic care
--- NOTE | 2019-02-28 14:29 | Pharmacy Report ---
Glycemic Control Progress Note - Date of Service February 28, 2019 - Scope Glycemic Pharmacist consulted for glycemic control to write orders per [facility] inpatient glycemic control protocol. - Objective Accuchecks BSG(last 24 hours):: 02/27/19 02/27/19 02/27/19 14:32 17:08 20:33 Glucose POC Glucose 131 H 220 H 169 H 02/28/19 02/28/19 02/28/19 05:22 08:09 12:16 Glucose 147 H POC Glucose 170 H 123 H HbA1c:: Hemoglobin A1c 8.5 % (4.5-5.6) H 01/26/19 11:51 - Recent Pertinent Medications The patient is currently receiving: * Basal insulin: Lantus 18 units x 1 * Correctional Insulin: Novolog Correction per scale ACHS Goal Range: Low 110 mg/dL - High 140 mg/dL Correction Factor: 25 mg/dL/unit * Prandial insulin: Per carb ratio of 1 unit per 9 grams CHO consumed - Outpatient Anti-Diabetic Meds metformin 500 mg PO BID Jardiance 10 mg daily - Assessment & Plan ASSESSMENT: * See progress note from 02/27/19 for more background info, in short: * Pt receiving SQ basal bolus insulin regimen for hyperglycemia secondary to baseline DM (outpatient regimen on hold) and POD 1 for R hip surgery * Patient is currently receiving an average of 29 units of insulin per day * 18 units of basal insulin * 11 units of prandial/correctional insulin * BSGs ranging 122 - 220 mg/dl over the past 24hrs * Changes needed to insulin regimen: * AM Fasting BSG = 170 mg/dl. This is slightly above goal range for patient based on inpatient targets and co-morbidities. Therefore Basal insulin will be increased by 20% to 22 units daily (give as two separate doses for better titration) * Post-prandial BSGs are in range therefore no changes needed to CF/CR. Restart metformin tomorrow since kidney function appropriate and diet tolerated. * Total daily dose = 45-50 units. PLAN FOR INPATIENT GLYCEMIC CONTROL: * Changing Lantus 11 units SQ BID * Continuing correction factor of 25 mg/dl/unit * Continuing carb ratio of 1 unit per 9 grams CHO consumed * Continuing goal range of Low 110 mg/dL - High 140 mg/dL RECOMMENDATIONS FOR DISCHARGE: * Patient's HbA1C is uncontrolled. * Consider increasing metformin to 1000 mg PO BID with meals * Consider adding injectable medication such as Lantus or Victoza. * Please note that the plan above was derived based on current level of insulin resistance and hospital stress. These recommendations are appropriate for inpatient admission only. Plan of care upon discharge will need to be reassessed to avoid potential outpatient hypo/hyperglycemia. Thank you.
[2019-02-28] MEDS: INSULIN GLARGINE SOLOSTAR 100 UNITS/ML 3 ML PEN SC SCH (21:16)
[2019-02-28] MEDS: SENNA 8.6 MG TAB PO SCH (21:18)
[2019-03-01] MEDS: KETOROLAC TROMETHAMINE 15 MG/ML VIAL IV SCH ×2 (02:03→07:48)
[2019-03-01] MEDS: ACETAMINOPHEN 500 MG TAB PO SCH (06:39)
[2019-03-01] MEDS: DOCUSATE SODIUM 100 MG CAP PO SCH (09:01)
[2019-03-01] MEDS: MULTIVITAMIN TAB PO SCH (09:02)
[2019-03-01] MEDS: ASPIRIN 81 MG ECTAB PO SCH (09:02)
[2019-03-01] MEDS: INSULIN GLARGINE SOLOSTAR 100 UNITS/ML 3 ML PEN SC SCH (09:03)
[2019-03-01] MEDS: INSULIN ASPART 100 UNITS/ML 3 ML PEN SC SCH (09:03)
--- NOTE | 2019-03-01 09:28 | Orthopedic Progress Note ---
Date of Service March 01, 2019 Assessment & Plan (1) Osteoarthritis of right hip: Overall he is doing fairly well. He is been ambulating with physical therapy. He is been a little bit slow and has had some soreness in the hip but it has been too bad. He is scheduled to [facility] later today. He will stay on aspirin for DVT prophylaxis and I will switch him to tramadol for pain control. I will see him in the office in 2 weeks. Present on Admission?: Yes Hali Hinojosa was seen and examined at bedside this morning. Overall is doing fairly well. Is able to ambulate in the hallways yesterday with physical therapy. He has been having bowel movements. His pain is controlled. He has no other complaints. Physical Exam Vital Signs (Past 24 Hours): Last Vital Signs Temp 36.9 C 03/01/19 06:56 Pulse 74 03/01/19 06:56 Resp 18 03/01/19 06:56 BP 146/74 H 03/01/19 06:56 Pulse Ox 100 03/01/19 06:56 Musculoskeletal: On physical examination of the right hip, the Sandy VAC dressing is to suction. His leg lengths are equal. He is active dorsiflexion and plantar flexion of his right ankle. Sensation is intact throughout.
--- NOTE | 2019-03-01 09:29 | Discharge Summary ---
Date of Service March 01, 2019 Admission HPI Per Admitting Provider Ashish is a pleasant 68-year-old male who is been dealing with chronic increasing right hip and groin pain. X-rays and clinical examination have been diagnostic for primary osteoarthritis of the right hip. After failing conservative treatment, he has elected to proceed with a right total hip arthroplasty. Specialty Data Orthopedic H & H 01/26/19 02/28/19 Range/Units 11:51 05:22 Hgb 15.8 12.0 L (14.0-18.0) g/dL Hct 46.3 35.2 L (42-52) % Coagulation 01/26/19 Range/Units 11:51 INR 1.0 (0.9-1.1) Discharge Data Consultations 02/28/19 08:00 Consult Case Management - Discharge Planning Routine Procedures Performed Operation Date: 02/27/19 09:20 Actual Procedures p Right Anterior Total Hip Arthroplasty(Right) - Efren Gregorio DO [facility] Course (1) Osteoarthritis of right hip: On February 27, 2019 work he arrived at [facility] and underwent a right anterior total hip arthroplasty without complication. He had a spinal anesthetic. Postoperatively he was started on aspirin for DVT prophylaxis and discharged to general orthopedic floors. His hospital course is uneventful. On postop day #1 his H&H was stable and his pain was well controlled. He was able to ambulate well with physical therapy. He did have a bowel movement. On postop day #2 he continued to do well. A bed was available for him at [facility]. He was then discharged to rehab. He will follow-up with orthopedics in 2 weeks. Discharge Instructions Home Medications Medication Instructions Recorded Confirmed aspirin [Aspir-Low] 81 mg PO QAM 01/22/19 02/27/19 metformin 500 mg PO BID 01/22/19 02/27/19 empagliflozin [Jardiance] 10 mg PO DAILY 02/27/19 02/27/19 Previous Rx's Medication Instructions Recorded aspirin [Ecotrin Low Strength] 81 mg PO BID #84 tab 03/01/19 tramadol 50 mg PO Q6H PRN #30 tab 03/01/19
== END 2019-03-01 11:06 | DRG 470 ==
LOC: ASU 06:58 → 3E 11:37